=== PATIENT | female | born 1995 | race African-American/Black ===

== ENCOUNTER 2017-10-24 15:08 | Outpatient (CLI) | payer BC ==
[2017-10-24 18:06] LABS: ADD UMIC NO; UR ASCORBIC ACID NEGATIVE (NEGATIVE); UR BILIRUBIN (Dip) NEGATIVE (NEGATIVE); UR BLOOD (Dip) NEGATIVE (NEGATIVE); UR CLARITY CLEAR (CLEAR); UR COLOR YELLOW (YELLOW); UR GLUCOSE (Dip) NEGATIVE (NEGATIVE); UR KETONES (Dip) NEGATIVE (NEGATIVE); UR LEUKOCYTE ESTERASE (Dip) NEGATIVE Leu/ul (NEGATIVE); UR NITRITE (Dip) NEGATIVE (NEGATIVE); UR SPECIFIC GRAVITY (Dip) 1.009 (1.003-1.030); UR TOTAL PROTEIN (Dip) NEGATIVE (NEGATIVE); UR UROBILINOGEN (Dip) NEGATIVE (NEGATIVE)
== END 2017-10-24 21:05 | disposition home or self-care (01) ==
LOC: OBT 15:08 → L-D 15:09 → OBT 21:05
DX: O26.893 Other specified pregnancy related conditions, third trimester (principal); R10.2 Pelvic and perineal pain; Z3A.30 30 weeks gestation of pregnancy
CPT/HCPCS: 76817; 81003; 87086

== ENCOUNTER 2017-12-13 23:15 | Outpatient (CLI) | payer BC ==
[2017-12-14 04:36] LABS: ADD UMIC NO; UR ASCORBIC ACID NEGATIVE (NEGATIVE); UR BILIRUBIN (Dip) NEGATIVE (NEGATIVE); UR BLOOD (Dip) NEGATIVE (NEGATIVE); UR CLARITY CLEAR (CLEAR); UR COLOR YELLOW (YELLOW); UR GLUCOSE (Dip) NEGATIVE (NEGATIVE); UR KETONES (Dip) NEGATIVE (NEGATIVE); UR LEUKOCYTE ESTERASE (Dip) NEGATIVE Leu/ul (NEGATIVE); UR NITRITE (Dip) NEGATIVE (NEGATIVE); UR SPECIFIC GRAVITY (Dip) 1.017 (1.003-1.030); UR TOTAL PROTEIN (Dip) NEGATIVE (NEGATIVE); UR UROBILINOGEN (Dip) NEGATIVE (NEGATIVE)
== END 2017-12-14 03:20 | disposition home or self-care (01) ==
LOC: OBT 23:15 → L-D 23:15
DX: O62.9 Abnormality of forces of labor, unspecified (principal); Z3A.38 38 weeks gestation of pregnancy
CPT/HCPCS: 76818; 81003

== ENCOUNTER 2017-12-14 07:59 | Outpatient (CLI) | payer BC | END 2017-12-15 18:25 | disposition home or self-care (01) | LOC: OBT 07:59 → L-D 12-15 14:50 → OBT 12-15 18:25 | DX: O62.9 Abnormality of forces of labor, unspecified (principal); Z3A.38 38 weeks gestation of pregnancy | CPT/HCPCS: 76818 ==

== ENCOUNTER 2017-12-22 11:19 | Inpatient (IN) | payer BC ==
[2017-12-22] MEDS: LACTATED RINGER'S 1,000 ML IV* ×3 (12:51→19:04)
[2017-12-22 12:54] LABS: ADD MAN DIFF? NO
[2017-12-22 12:56] LABS: BASOPHILS % 0.4 % (0.0-2.0); EOSINOPHILS # 0.2 10^3/ul (0.0-0.5); EOSINOPHILS % 1.8 % (0.0-7.0); HEMATOCRIT 32.6 % (37.0-47.0); HEMOGLOBIN 11.3 g/dl (12.0-16.0); LYMPHOCYTES % 9.9 % (18.0-55.0); MEAN CORPUSCULAR HEMOGLOBIN 27.6 pg (29.0-33.0); MEAN CORPUSCULAR HGB CONC 34.7 g/dl (32.0-37.0); MEAN CORPUSCULAR VOLUME 79.5 fl (72.0-104.0); MEAN PLATELET VOLUME 11.2 fl (7.4-10.4); MONOCYTE # 0.6 10^3/ul (0.3-0.9); MONOCYTES % 6.2 % (0.0-13.0); NEUTROPHIL # 7.7 10^3/ul (1.6-7.5); NEUTROPHILS % 80.1 % (30.0-74.0); PLATELET COUNT 188 10^3/UL (140-415); RED CELL DISTRIBUTION WIDTH 14.2 % (11.5-14.5)
[2017-12-22 12:56] LABS: WHITE BLOOD COUNT 9.7 10^3/ul (4.8-10.8)
[2017-12-22] MEDS ORDERED: OXYTOCIN 30 UNITS/LR 500 ML IV (13:00)
[2017-12-22] MEDS ORDERED: MISOPROSTOL 200 MCG TAB PR (13:00)
[2017-12-22] MEDS ORDERED: BUTORPHANOL 2 MG INJ IV (13:00)
[2017-12-22] MEDS ORDERED: METHYLERGONOVINE 0.2 MG INJ IM (13:00)
[2017-12-22] MEDS ORDERED: LIDOCAINE 1% (MPF) 30 ML INJ INJ (13:00)
[2017-12-22] MEDS ORDERED: CARBOPROST 250 MCG INJ IM (13:00)
[2017-12-22 13:25] LABS: INR 0.87; PARTIAL THROMBOPLASTIN TIME 27.3 Sec (25.0-35.0); PROTIME 11.9 Sec (11.9-14.9); PT RATIO 0.9
[2017-12-22] MEDS ORDERED: FENTAnyl 2MCG/ML-ROPIV 0.2% 100 ML (13:37)
[2017-12-22] MEDS ORDERED: NALOXONE (0.4 MG/ML) INJ IV (14:00)
[2017-12-22] MEDS ORDERED: DIPHENHYDRAMINE 50 MG INJ IV (14:00)
[2017-12-22] MEDS ORDERED: ONDANSETRON 4 MG INJ IV (14:00)
[2017-12-22] MEDS: AMPICILLIN 2 GM/NS (PMX) 100 ML IV (14:04)
[2017-12-22 14:07] LABS: HEPATITIS B SURFACE ANTIGEN NEGATIVE (NEGATIVE)
[2017-12-22] MEDS: OXYTOCIN 30 UNITS/LR 500 ML IV (15:48)
[2017-12-22] MEDS: AMPICILLIN 1 GM/NS (PMX) 50 ML IV ×2 (18:12→21:44)
[2017-12-22 19:13] LABS: AMPHETAMINE/METHAMPHETAMINE Negative (NEGATIVE); BARBITURATES Negative (NEGATIVE); BENZODIAZEPINES Negative (NEGATIVE); CANNABINOIDS Negative (NEGATIVE); COCAINE Negative (NEGATIVE); OPIATES Negative (NEGATIVE)
[2017-12-22 19:57] LABS: RAPID PLASMA REAGIN NONREACTIVE (NR)
[2017-12-22] MEDS: FENTAnyl 2MCG/ML-ROPIV 0.2% 100 ML BAG EPI (20:17)
[2017-12-23] MEDS: LACTATED RINGER'S 1,000 ML IV* ×2 (00:42→01:38)
[2017-12-23] MEDS: OXYTOCIN 30 UNITS/LR 500 ML IV ×2 (01:37→05:27)
[2017-12-23] MEDS ORDERED: MISOPROSTOL 200 MCG TAB PR (02:00)
[2017-12-23] MEDS ORDERED: METHYLERGONOVINE 0.2 MG INJ IM (02:00)
[2017-12-23] MEDS ORDERED: OXYTOCIN 30 UNITS/LR 500 ML IV (02:00)
[2017-12-23] MEDS ORDERED: CARBOPROST 250 MCG INJ IM (02:00)
[2017-12-23] MEDS: IBUPROFEN 600 MG TAB PO ×4 (05:27→23:56)
[2017-12-23] MEDS: HYDROCODONE/APAP (5/325) TAB PO (06:14)
[2017-12-23] MEDS: LANOLIN 7 GM TUBE TOP (10:25)
[2017-12-24] MEDS: IBUPROFEN 600 MG TAB PO ×3 (05:24→17:35)
[2017-12-24 08:53] LABS: ADD MAN DIFF? NO
[2017-12-24 08:58] LABS: WHITE BLOOD COUNT 11.4 10^3/ul (4.8-10.8)
[2017-12-24 08:58] LABS: BASOPHIL # 0.1 10^3/ul (0.0-0.1); BASOPHILS % 0.5 % (0.0-2.0); EOSINOPHILS # 0.3 10^3/ul (0.0-0.5); EOSINOPHILS % 2.6 % (0.0-7.0); HEMATOCRIT 31.1 % (37.0-47.0); HEMOGLOBIN 10.6 g/dl (12.0-16.0); LYMPHOCYTES # 1.6 10^3/ul (0.8-2.9); LYMPHOCYTES % 13.8 % (18.0-55.0); MEAN CORPUSCULAR HEMOGLOBIN 27.5 pg (29.0-33.0); MEAN CORPUSCULAR HGB CONC 34.1 g/dl (32.0-37.0); MEAN CORPUSCULAR VOLUME 80.6 fl (72.0-104.0); MONOCYTE # 0.8 10^3/ul (0.3-0.9); MONOCYTES % 7.3 % (0.0-13.0); NEUTROPHIL # 8.5 10^3/ul (1.6-7.5); NEUTROPHILS % 74.1 % (30.0-74.0); NUCLEATED RED BLOOD CELLS% 0.2 /100WBC (0.0-0.0); PLATELET COUNT 189 10^3/UL (140-415); RED BLOOD COUNT 3.86 10^6/ul (4.20-5.40); RED CELL DISTRIBUTION WIDTH 14.5 % (11.5-14.5)
[2017-12-25] MEDS: IBUPROFEN 600 MG TAB PO ×3 (00:19→12:00)
[2017-12-25] MEDS: DIPHTH/TET/ACEL PERTUSS (ADULT) 0.5 ML VIAL IM* (12:36)
== END 2017-12-25 13:55 | disposition home or self-care (01) | DRG 775 ==
LOC: OBT 11:19 → PP1 12-23 03:19 → L-D 11:19 → OBT 11:41 → L-D 11:41
PROVIDERS: Obstetrics & Gynecology
PROC: 10E0XZZ Delivery of Products of Conception, External Approach (ICD-10-PCS; principal; 2017-12-23)
PROC: 0HQ9XZZ Repair Perineum Skin, External Approach (ICD-10-PCS; 2017-12-23)
DX: O70.0 First degree perineal laceration during delivery (principal); Z3A.39 39 weeks gestation of pregnancy; Z37.0 Single live birth
CPT/HCPCS: 62319; 80307; 85025; 85610; 85730; 86592; 86850; 86900; 86901; 87340; 90715

== ENCOUNTER 2018-10-25 00:06 | Emergency (ER) | payer BC ==
[2018-10-25] MEDS: SOD CHLORIDE 0.9% 1,000 ML IV (03:01)
[2018-10-25 03:10] LABS: ADD MAN DIFF? NO
[2018-10-25] MEDS: ACETAMINOPHEN 500 MG TAB PO (03:10)
[2018-10-25 03:12] LABS: BASOPHIL # 0.1 10^3/ul (0.0-0.1); BASOPHILS % 1.4 % (0.0-2.0); EOSINOPHILS # 0.2 10^3/ul (0.0-0.5); EOSINOPHILS % 3.7 % (0.0-7.0); HEMATOCRIT 35.1 % (37.0-47.0); LYMPHOCYTES # 1.4 10^3/ul (0.8-2.9); LYMPHOCYTES % 21.8 % (15.0-51.0); MEAN CORPUSCULAR HEMOGLOBIN 26.4 pg (29.0-33.0); MEAN CORPUSCULAR HGB CONC 34.2 g/dl (32.0-37.0); MEAN CORPUSCULAR VOLUME 77.3 fl (82.0-101.0); MEAN PLATELET VOLUME 10.6 fl (7.4-10.4); MONOCYTE # 0.5 10^3/ul (0.3-0.9); MONOCYTES % 7.6 % (0.0-11.0); NEUTROPHIL # 4.2 10^3/ul (1.6-7.5); NEUTROPHILS % 65.2 % (39.0-77.0); PLATELET COUNT 328 10^3/UL (140-415); RED BLOOD COUNT 4.54 10^6/ul (4.20-5.40); RED CELL DISTRIBUTION WIDTH 13.2 % (11.5-14.5)
[2018-10-25 03:12] LABS: WHITE BLOOD COUNT 6.5 10^3/ul (4.8-10.8)
[2018-10-25 03:32] LABS: ANION GAP 9 (5-13); BLOOD UREA NITROGEN 6 mg/dl (7-20); C-REACTIVE PROTEIN 7.5 mg/dl (0.0-0.9); CALCIUM 9.6 mg/dl (8.4-10.2); CARBON DIOXIDE 29 mmol/L (21-31); CHLORIDE 104 mmol/L (97-110); CREATININE 0.97 mg/dl (0.44-1.00); Estimated GFR > 60 mL/min (>60); GLUCOSE 98 mg/dl (70-220); INR 0.93; POTASSIUM 3.5 mmol/L (3.5-5.1); PROTIME 12.6 Sec (11.9-14.9); SODIUM 142 mmol/L (135-144)
[2018-10-25 03:33] LABS: PARTIAL THROMBOPLASTIN TIME 29.3 Sec (23.0-35.0)
[2018-10-25] MEDS: KETOROLAC 30 MG INJ IV (03:37)
[2018-10-25 04:37] LABS: ADD UMIC YES; UR ASCORBIC ACID NEGATIVE (NEGATIVE); UR BACTERIA FEW /HPF (NONE SEEN); UR BILIRUBIN (Dip) NEGATIVE (NEGATIVE); UR BLOOD (Dip) 1+ mg/dL (NEGATIVE); UR CLARITY SLIGHTLY CLOUDY (CLEAR); UR COLOR YELLOW (YELLOW); UR GLUCOSE (Dip) NEGATIVE (NEGATIVE); UR KETONES (Dip) NEGATIVE (NEGATIVE); UR LEUKOCYTE ESTERASE (Dip) 1+ Leu/ul (NEGATIVE); UR NITRITE (Dip) POSITIVE (NEGATIVE); UR RBC 2 /HPF (0-5); UR SPECIFIC GRAVITY (Dip) 1.011 (1.003-1.030); UR SQUAMOUS EPITHELIAL CELL FEW /HPF (FEW); UR TOTAL PROTEIN (Dip) NEGATIVE (NEGATIVE); UR UROBILINOGEN (Dip) NEGATIVE (NEGATIVE); UR WBC 15 /HPF (0-5)
[2018-10-25 04:41] LABS: ERYTHROCYTE SEDIMENTATION RATE 36 mm/Hr (0-20)
[2018-10-25] MEDS: CEFTRIAXONE 1 GM/50 ML (PMX) 50 ML IVPB (05:07)
[2018-10-25] MEDS: PROMETHAZINE/CODEINE 5ML CUP PO (05:07)
== END 2018-10-25 05:44 | disposition home or self-care (01) ==
LOC: E/R 00:06
DX: N39.0 Urinary tract infection, site not specified (principal); B34.9 Viral infection, unspecified; R07.9 Chest pain, unspecified
CPT/HCPCS: 36415; 71045; 80048; 81001; 81025; 85025; 85610; 85651; 85730; 86140; 87040-91; 87880; 96374; 96375; 99284-25